=== PATIENT | male | born 1980 ===

== ENCOUNTER 2017-01-05 16:36 | Emergency (ER) | payer SELFPAY ==
[2017-01-05 17:00] VITALS: RESP 18
[2017-01-05] MEDS ORDERED: Sodium Chloride 0.9% 1,000 ML IV STA (17:22)
[2017-01-05 17:47] LABS: BASO # 0.1 K/uL (0.0-0.2); BASO % 0.4 % (0.0-2.0); EOS # 0.1 K/uL (0.0-0.7); EOS % 0.4 % (0.0-4.0); HEMOGLOBIN 14.4 g/dL (12.0-18.0); LYMPH # 2.4 K/uL (1.0-4.3); LYMPH % 10.7 % (20.0-40.0); MEAN CORPUSCULAR HEMOGLOBIN 32.1 pg (27.0-31.0); MEAN CORPUSCULAR HGB CONC 34.1 g/dL (33.0-37.0); MEAN PLATELET VOLUME 8.1 fL (7.2-11.7); MONO # 1.4 K/uL (0.0-0.8); MONO % 6.2 % (0.0-10.0); NEUT # 18.4 K/uL (1.8-7.0); NEUT % 82.3 % (50.0-75.0); NRBC % 0.1 % (0.0-2.0); RBC 4.49 Mil/uL (4.40-5.90); RED CELL DISTRIBUTION WIDTH 14.1 % (11.5-14.5); WHITE BLOOD COUNT 22.4 K/uL (4.8-10.8)
[2017-01-05 17:51] LABS: SQUAMOUS EPITHIAL < 1 /hpf (0-5); URINE BACTERIA MANY (<OCC); URINE BILIRUBIN NEGATIVE (NEGATIVE); URINE BLOOD 2+ (NEGATIVE); URINE CLARITY Hazy (Clear); URINE COLOR Amber (YELLOW); URINE GLUCOSE (UA) NORMAL (Normal); URINE LEUKOCYTE ESTERASE 3+ Leu/uL (Negative); URINE NITRATE NEGATIVE (NEGATIVE); URINE PROTEIN 1+ mg/dL (NEGATIVE)
[2017-01-05 17:58] LABS: ALBUMIN 3.9 g/dL (3.5-5.0)
[2017-01-05 18:00] LABS: GFR AFRICAN-AMERICAN > 60; GFR NON-AFRICAN AMERICAN > 60
[2017-01-05 18:01] LABS: ALB/GLOB RATIO 1.1 (1.0-2.1); ALT/SGPT 26 U/L (21-72); AST/SGOT 24 U/L (17-59); BLOOD UREA NITROGEN 10 mg/dL (9-20); CALCIUM 8.9 mg/dl (8.6-10.4)
--- NOTE | 2017-01-05 18:16 | US ---
HISTORY: testicular pain/swelling TECHNIQUE: Realtime sonography through the scrotum with color and doppler flow. COMPARISON: None available. FINDINGS: RIGHT TESTICLE: Measures 3.8 x 2.6 x 3.0 cm. Homogeneous echotexture. Blood flow is demonstrated. RIGHT EPIDIDYMIS: Measures approximately 2.6 x 1.3 x 2.8 cm. Hypervascular. Heterogeneous. LEFT TESTICLE: Measures 4.1 x 2.1 x 2.4 cm. Homogeneous echotexture. Blood flow is demonstrated. LEFT EPIDIDYMIS: Measures approximate 0.8 x 0.9 x 1.3 cm. HYDROCELE: Small bilateral hydroceles. VARICOCELE: None. OTHER FINDINGS: None. IMPRESSION: Findings appear consistent with right epididymitis. Small bilateral hydroceles.
[2017-01-05] MEDS ORDERED: cefTRIAXone IV 1 gm in Dextros 0 ML IVPB ONE (18:31)
[2017-01-05] MEDS ORDERED: cefTRIAXone (Rocephin) 250 mg Inj IM STA (18:40)
--- NOTE | 2017-01-05 19:00 | C.PDOC ---
Time Seen by Provider: 01/05/17 17:22 Chief Complaint (Nursing): Male Genitourinary Past Medical History Vital Signs: Last Vital Signs Temp 100.2 F H 01/05/17 16:56 Pulse 96 H 01/05/17 16:56 Resp 18 01/05/17 16:56 BP 127/83 01/05/17 16:56 Pulse Ox 97 01/05/17 16:56 - Social History Hx Alcohol Use: No Hx Substance Use: Yes (Marijuana) ED Course And Treatment - Laboratory Results Result Diagrams: 01/05/17 17:43 01/05/17 17:43 O2 Sat by Pulse Oximetry: 97 Disposition - Disposition Referrals: Zenon Palacio MD [Staff Provider] - [facility] [Outside] [facility] [Outside] Disposition: HOME/ ROUTINE Disposition Time: 19:00 Condition: STABLE Additional Instructions: Follow up with Urologist within 1-2 days. Return to ED if feel worse. Prescriptions: Doxycycline Hyclate [Doryx] 100 mg PO BID #20 cap Instructions: Epididymitis (ED) - Clinical Impression Clinical Impression: Epididymitis
--- NOTE | 2017-01-05 19:02 | C.PDOC ---
History Of Present Illness 36 y/o male presents to the ED with complaints of right testicular swelling and pain x2 days. Pt denies fever, chills, vomiting, urinary symptoms or any other complaints. Pt states he last had sexual intercourse several months ago. Time Seen by Provider: 01/05/17 17:22 Chief Complaint (Nursing): Male Genitourinary History Per: Patient History/Exam Limitations: no limitations Onset/Duration Of Symptoms: Days Current Symptoms Are (Timing): Still Present Severity: Moderate Associated Symptoms: denies: Fever, Chills, Urinary Symptoms Alleviating Factors: None Recent travel outside of the [place]: No Past Medical History Reviewed: Historical Data, Nursing Documentation, Vital Signs Vital Signs: Last Vital Signs Temp 99.8 F H 01/05/17 19:08 Pulse 88 01/05/17 19:08 Resp 18 01/05/17 19:08 BP 132/78 01/05/17 19:08 Pulse Ox 97 01/05/17 20:01 Family History: States: Unknown Family Hx - Social History Hx Alcohol Use: No Hx Substance Use: Yes (Marijuana) Review Of Systems Except As Marked, All Systems Reviewed And Found Negative. Constitutional: Negative for: Fever, Chills Gastrointestinal: Negative for: Vomiting Genitourinary: Positive for: Other (right testicular swelling). Negative for: Dysuria, Frequency, Hematuria, Penile Pain Physical Exam - Physical Exam Appears: Non-toxic, No Acute Distress Skin: Warm, Dry, No Rash Head: Atraumatic, Normacephalic Chest: Symmetrical Cardiovascular: Rhythm Regular, No Murmur Respiratory: Normal Breath Sounds, No Rales, No Rhonchi, No Wheezing Gastrointestinal/Abdominal: Normal Exam, Soft, No Tenderness Male Genital: Testicular Swelling (right) Extremity: Normal ROM Extremity: Bilateral: Atraumatic Neurological/Psych: Oriented x3, Normal Speech, Normal Cognition ED Course And Treatment - Laboratory Results Result Diagrams: 01/05/17 17:43 01/05/17 17:43 O2 Sat by Pulse Oximetry: 97 (room air) Pulse Ox Interpretation: Normal - CT Scan/US Testicular US Other Rad Studies (CT/US): Read By Radiologist, Radiology Report Reviewed CT/US Interpretation: Accession No. : [id number]. Patient Name / ID : JUMA Underwood / [id number]. Exam Date : 01/05/2017 17:51:26 ( Approved ). Study Comment : Sex / Age : M / 36Y. Creator : Patti Benson MD. Dictator : Patti Benson MD. Senior Ui Software Engineer : Topographical Surveyor : Patti Benson MD. Approver2 : Report Date : 01/05/2017 18:14:41. My Comment : . HISTORY: testicular pain/swelling. TECHNIQUE: Realtime sonography through the scrotum with color and doppler flow. COMPARISON: None available. FINDINGS: RIGHT TESTICLE: Measures 3.8 x 2.6 x 3.0 cm. Homogeneous echotexture. Blood flow is demonstrated. RIGHT EPIDIDYMIS: Measures approximately 2.6 x 1.3 x 2.8 cm. Hypervascular. Heterogeneous. LEFT TESTICLE : Measures 4.1 x 2.1 x 2.4 cm. Homogeneous echotexture. Blood flow is demonstrated. LEFT EPIDIDYMIS: Measures approximate 0.8 x 0.9 x 1.3 cm. HYDROCELE: Small bilateral hydroceles. VARICOCELE: None. OTHER FINDINGS: None. IMPRESSION: Findings appear consistent with right epididymitis. Small bilateral hydroceles. Progress Note: Plan: testicular US, UA, GC/chlamydia, rocephin, zithromax. Discharged home with Rx doxycycline and instructions to follow up with urologist. Disposition - Disposition Referrals: [facility] [Outside] [facility] [Outside] Zenon Palacio MD [Staff Provider] - Disposition: HOME/ ROUTINE Disposition Time: 19:00 Condition: STABLE Additional Instructions: Follow up with Urologist within 1-2 days. Return to ED if feel worse. Prescriptions: Doxycycline Hyclate [Doryx] 100 mg PO BID #20 cap Instructions: Epididymitis (ED) - Clinical Impression Clinical Impression: Epididymitis - PA / DIRECTOR OF OPERATIONS HOME HEALTH / Resident Statement MD/DO has reviewed & agrees with the documentation as recorded. - Scribe Statement The provider has reviewed the documentation as recorded by the Scribe Kenn Redmond All medical record entries made by the Scribe were at my direction and personally dictated by me. I have reviewed the chart and agree that the record accurately reflects my personal performance of the history, physical exam, medical decision making, and the department course for this patient. I have also personally directed, reviewed, and agree with the discharge instructions and disposition.
[2017-01-05 19:09] VITALS: BP 132/78; PULSE 88; TEMP 99.8
[2017-01-05 20:01] VITALS: O2SAT 97
== END 2017-01-05 19:11 | disposition home or self-care (01) ==
LOC: C.ER 16:36
DX: N45.1 Epididymitis (principal)
CPT/HCPCS: 76870; 80053; 81001; 85025; 87040; 87086; 87491; 87591; 96360; 96372; 99284; J0696; J7040